=== PATIENT | male | born 1950 | race Caucasian/White ===

== ENCOUNTER 2017-11-13 07:45 | Day surgery (SDC) | payer MEDICARE, MEDICAID ==
[2017-11-13] MEDS ORDERED: Propofol 10 mg/ml Inj (20 ML) ONE (09:34)
[2017-11-13] MEDS ORDERED: Midazolam 2 MG/2 ML VIAL ONE (09:34)
[2017-11-13] MEDS ORDERED: Simethicone 40 mg/0.6 ml Liquid (30 ml) ONE (10:07)
[2017-11-13] MEDS ORDERED: Lidocaine Hydrochloride 5 ML INJ ONE (10:15)
[2017-11-13 11:00] VITALS: TEMP 96.8; O2SAT 100
[2017-11-13 14:30] VITALS: BP 159/87; PULSE 72; RESP 12
== END 2017-11-13 13:50 | disposition home or self-care (01) ==
LOC: C.ENDO 07:45
PROVIDERS: ATTEND Internal Medicine
DX: K29.50 Unspecified chronic gastritis without bleeding (principal); K22.10 Ulcer of esophagus without bleeding; D12.4 Benign neoplasm of descending colon; D12.5 Benign neoplasm of sigmoid colon; D12.3 Benign neoplasm of transverse colon; K57.30 Diverticulosis of large intestine without perforation or abscess without bleeding; K64.8 Other hemorrhoids; K31.89 Other diseases of stomach and duodenum; R10.13 Epigastric pain; Z87.19 Personal history of other diseases of the digestive system; E11.9 Type 2 diabetes mellitus without complications; E78.5 Hyperlipidemia, unspecified; I10 Essential (primary) hypertension; J45.909 Unspecified asthma, uncomplicated
CPT/HCPCS: 43239; 45380; 82948; 88305; 88313; 88342; J2250; J2704; J3010